=== PATIENT | female | born 1975 | race Caucasian/White ===

== ENCOUNTER 2020-05-07 07:05 | Emergency (ER) | payer OTHER, SELFPAY ==
[2020-05-07 07:10] VITALS: BP 109/82; PULSE 96; RESP 18; TEMP 36.8; O2SAT 98
[2020-05-07 07:23] VITALS: BP 119/75; PULSE 87
[2020-05-07 07:24] VITALS: BP 118/84; PULSE 105
[2020-05-07 07:24] LABS: Basophils Percent Auto 0.4 % (0.2-1.2); Hematocrit 42.6 % (37.0-47.0); Hemoglobin 14.7 g/dL (12.0-15.0); Immature Granulocyte Absolute 0.01 K/mm3 (0.00-0.031); Immature Granulocyte Percent A 0.4 % (0-0.5); Immature Platelet Fraction Pct 3.6 % (0.9-11.2); Lymphocytes Absolute Auto 0.81 K/mm3 (0.9-3.2); Lymphocytes Percent Auto 31.5 % (18.3-44.2); Mean Corpuscular HGB Conc 34.5 g/dl (32-36); Mean Corpuscular Hemoglobin 31.2 pg (26-34); Mean Corpuscular Volume 90.4 fl (80-100); Mean Platelet Volume 10.4 fl (7.4-10.4); Monocytes Absolute Auto 0.3 K/mm3 (0.1-0.6); Monocytes Percent Auto 9.7 % (2.6-8.5); Neutrophils Absolute Auto 1.5 K/mm3 (1.3-6.7); Platelet Count Result 141 k/mm3 (150-375); Red Blood Count 4.71 M/mm3 (4.2-5.4); Red Cell Distribution Width 11.6 % (11.5-14.5); White Blood Count 2.6 K/mm3 (4.5-10.0)
[2020-05-07 07:25] VITALS: BP 114/78; PULSE 120
[2020-05-07 07:34] LABS: Alanine Aminotransferase 38 U/L (4-35); Alkaline Phosphatase 71 U/L (38-126); Anion Gap 7 mmol/L (8-16); Aspartate Amino Transferase 52 U/L (14-36); Bilirubin,Total 0.3 mg/dL (0.2-1.3); Blood Urea Nitrogen 9 mg/dL (7-17); Calcium 7.7 mg/dL (8.4-10.2); Carbon Dioxide 26 mmol/L (22-30); Chloride 104 mmol/L (98-107); Estimated CRCL calculation 78 ml/min; Estimated Glomerular Filt Rate > 60; Glucose 134 mg/dL (65-105); Lipase 148 U/L (23-300); Potassium 3.6 mmol/L (3.4-5.0); Sodium 137 mmol/L (137-145)
[2020-05-07] MEDS: SODIUM CHLORIDE 0.9% IV 1,000 ML 999 ML IV CONT (07:39)
[2020-05-07 07:43] LABS: Add Urine Microscopic? YES; Appearance Urine Clear (Clear); Bacteria Urine Trace /hpf; Bilirubin Urine Negative (Negative); Blood Urine 1+ (Negative); Color Urine Yellow (Yellow); Glucose Urine UA Negative (Negative); Ketones Urine Trace mg/dL (Negative); Leukocyte Esterase Ur Negative LEU/UL (Negative); Mucus Urine Rare /lpf; Nitrate Urine Negative (Negative); Protein Urine 1+ mg/dL (Negative); Specific Grav Ur 1.024 (1.001-1.035); Squamous Epithelial Cell Urine Few /hpf (Few); Urobilinogen Urine Negative mg/dL (<2.0); WBC Urine 0-3 /hpf
--- NOTE | 2020-05-07 07:52 | ED.GENADULT ---
HPI - General Adult General Chief complaint: Nausea/Vomiting/Diarrhea Stated complaint: GUTI[facility]RRE[facility]ILLS X3D Time Seen by Provider: 05/07/20 07:21 Source: patient History of Present Illness HPI narrative: Patient is a 45 y/o female complaining of nausea, vomiting since 2-3 days ago. She states that she vomited only once. There is no alleviating or exacerbating factor. She also had a headache, mostly behind eyes 3 days ago, but the headache has resolved. She also has some dry mouth. She denies any abdominal pain. Related Data Home Medications Medication Instructions Recorded Confirmed No Home Medications 03/11/19 03/18/19 Allergies Allergy/AdvReac Type Severity Reaction Status Date / Time No Known Allergies Allergy Unverified 05/07/20 07:14 Review of Systems Constitutional: Constitutional: Denies chills, Denies fever(s), Reports headache(s) and Denies weakness Eyes: Eyes: Denies blurry vision ENT: Reports dry mouth, Reports headache(s) and Denies neck pain Cardiovascular: Cardiovascular: Denies chest pain and Denies dyspnea Respiratory: Respiratory: Denies cough and Denies dyspnea Gastrointestinal: Gastrointestinal: Denies abdominal pain, Reports diarrhea, Reports nausea and Reports vomiting Genitourinary: Genitourinary: Denies hematuria and Denies dysuria Musculoskeletal: Musculoskeletal: Denies back pain and Denies neck pain Neurologic: Reports headache(s) and Denies weakness PMFSH Past Medical History Medical History Incontinence Obesity Social History Social History Gender identity (if verbalized by the patient): Female Exam Const: General: no acute distress and well developed Orientation/consciousness: oriented to person, oriented to place, oriented to time and patient oriented x3 HENMT: Head: normocephalic Ears: external ears normal General nose exam: Normal external nose present Eyes: General: appearance normal, both eyes and all related structures Conjunctivae: conjunctivae normal Neck: Neck: normal visual inspection and full ROM Chest: Chest palpation & inspection: normal inspection of the chest and no tenderness Resp: Effort & Inspection: normal respiratory effort Auscultation: clear to auscultation bilaterally Cardio: Rate: regular rate Rhythm: regular rhythm GI: GI Palp: No abdominal tenderness and Yes Soft to palpation Skin: General skin exam: normal color and turgor normal Neuro: General: oriented to person, oriented to place, oriented to time and patient oriented x3 Cognition (Neuro): normal cognition Extrem: General: normal to inspection, full ROM and no pedal edema Psych: Appearance: grossly normal Mental Status: mental status grossly normal Affect: normal affect Course Reevaluation(s) Reevaluation #1: Rechecked. Informed patient about mildly elevated LFTs and instructed patient to follow up with PCP for further evaluation. Date: 05/07/20 Time: 07:50 Vital Signs Vital signs: Vital Signs Temperature 36.8 C 05/07/20 07:10 Pulse Rate 96 05/07/20 07:10 Respiratory Rate 18 05/07/20 07:10 Blood Pressure 109/82 05/07/20 07:10 Pulse Oximetry 98 05/07/20 07:10 Temperature 36.8 C 05/07/20 07:10 Pulse Rate 90 05/07/20 08:48 Respiratory Rate 18 05/07/20 08:48 Blood Pressure 107/69 05/07/20 08:48 Pulse Oximetry 97 05/07/20 08:48 Medical Decision Making Vital Signs Vital Signs: Vital Signs Temperature 36.8 C 05/07/20 07:10 Pulse Rate 96 05/07/20 07:10 Respiratory Rate 18 05/07/20 07:10 Blood Pressure 109/82 05/07/20 07:10 Pulse Oximetry 98 05/07/20 07:10 Temperature 36.8 C 05/07/20 07:10 Pulse Rate 90 05/07/20 08:48 Respiratory Rate 18 05/07/20 08:48 Blood Pressure 107/69 05/07/20 08:48 Pulse Oximetry 97 05/07/20 08:48 Lab Data Result diagrams: 05/07/20 07:15 05/07
[2020-05-07 08:48] VITALS: BP 107/69; PULSE 90; RESP 18; O2SAT 97
== END 2020-05-07 09:21 | disposition home or self-care (01) ==
PROVIDERS: Emergency Provider Emergency Medicine; PCP Internal Medicine
DX: K52.9 Noninfective gastroenteritis and colitis, unspecified (principal); R74.01 Elevation of levels of liver transaminase levels; E66.9 Obesity, unspecified; Z68.29 Body mass index [BMI] 29.0-29.9, adult
CPT/HCPCS: 36415; 80053; 81001; 81025; 83690; 85025; 85055; 96360; 99283; J7030

== ENCOUNTER 2020-08-29 13:40 | Emergency (ER) | payer OTHER, SELFPAY ==
--- NOTE | ~2020-08-29 | US_ITS ---
EXAMINATION: US pelvic complete DATE: 08/29/2020 15:51 INDICATION: Right lower quadrant abdominal pain. TECHNIQUE: Multiple transabdominal and transvaginal sonographic images of the pelvis were obtained. COMPARISON: CT abdomen and pelvis 08/29/2020 FINDINGS: TRANSABDOMINAL ULTRASOUND: The uterus measures 9.3 x 3.1 x 4.3 cm. There is no free fluid in the pelvis. TRANSVAGINAL ULTRASOUND: The endometrial complex measures 3 mm in thickness. There is an intrauterine device in expected posit ion. The right ovary measures 5.0 x 3.5 x 2.4 cm. There is a 3.0 cm cyst in right ovary, likely a fol licular cyst. The left ovary measures 2.3 x 0.9 x 1.6 cm. There is normal vascular flow in the ovarie s. IMPRESSION: 1. 3.0 cm cyst in right ovary, likely a follicular cyst. Reviewed, dictated and finalized at location A.
--- NOTE | ~2020-08-29 | CT_ITS ---
EXAMINATION: CT abdomen pelvis w con INDICATION: Nausea, right lower quadrant pain TECHNIQUE: Computed tomographic images of the abdomen and pelvis were obtained after the administrati on of 100 cc of Omnipaque 350 intravenous contrast. The dose-length product (DLP) was 1072.66 mGy-cm. Automated exposure control and iterative reconstruction technique were employed. COMPARISON: 09/29/2018 FINDINGS: The lung bases are clear. The heart size is normal. Punctate calcifications in an otherwise normal spleen likely represent healed granulomatous disease. The liver, pancreas, gallbladder, and a drenal glands are normal. The kidneys are unremarkable. The appendix is normal. An IUD is present in expected position. Tubal occlusion devices are also noted. There is a 5 cm cyst of the right adnexa w ith increase in size since the comparison examination. No pathologically enlarged abdominal or pelvic lymph nodes are identified. There is no free intraperitoneal gas or evidence of bowel obstruction. IMPRESSION: 1. No CT correlate for the patient's symptoms. Reviewed, dictated and finalized at location A.
[2020-08-29 13:44] VITALS: BP 145/92; PULSE 81; RESP 20; TEMP 36.5; O2SAT 98
--- NOTE | 2020-08-29 13:55 | ED.GENADULT ---
HPI - General Adult General Chief complaint: Abdominal Pain Stated complaint: abd pain Time Seen by Provider: 08/29/20 13:43 Source: RN notes reviewed History of Present Illness HPI narrative: Patient presents to emergency department from home for right side abdominal pain. Patient states symptoms again approximately 12:30 AM today. The pain is located in the right upper lateral abdomen does not radiate described as sharp and stabbing associated with nausea. Patient denies any fevers or chills chest pain shortness of breath. Notes one episode of diarrhea states she took Tylenol at home with minimal relief Related Data Allergies Allergy/AdvReac Type Severity Reaction Status Date / Time No Known Allergies Allergy Verified 08/29/20 13:50 Review of Systems Review of Systems: Narrative: Gen.: Denies fevers or chills ENT: Denies congestion Respiratory: Denies shortness of breath or cough CV: Denies chest pain or palpitations GI: See HPI denies burning, urgency, frequency or hematuria Musculoskeletal: Denies back pain or muscle pain Neuro: Denies numbness, tingling, weakness or focal weakness Skin: Denies rash Except as documented, all other systems reviewed and negative [facility] Past Medical History Medical History Incontinence Obesity Social History Social History (Updated 08/29/20 @ 13:55 by Luke Duarte DO) Smoking status: Never smoker Gender identity (if verbalized by the patient): Female Exam Narrative: Exam Narrative: APPEARANCE: No acute distress, nontoxic, resting in bed HEENT: Normocephalic, atraumatic, OMM RESPIRATORY: No respiratory distress, clear to auscultation bilaterally with no rhonchi wheezing or rales CARDIOVASCULAR: RRR s murmur ABDOMINAL: Soft nondistended tender palpation right upper quadrant right lower quadrant no tenderness left upper quadrant left lower quadrant no rebound or guarding : Normal external exam moderate amount of brownish discharge cervix is closed, right adnexal tenderness no left adnexal tenderness, positive cervical motion tenderness MUSCULOSKELETAl: Moves all extremities. No clubbing, cyanosis or edema. NEURO: Awake and alert. Following commands, speech normal, no focal deficits SKIN:: Warm, dry. Normal Color PSYCHIATRIC: Normal affect/mood Course Course Emergency Course: Discussed with Dr. Liao presentation work-up agrees plan for discharge agrees with plan for treatment for PID Patient states that they are feeling much better at this time. States abdominal pain has improved. Repeat abdominal exam shows the patient's abdomen to be soft with no surgical abdomen present discussed with patient results of workup and diagnosis. Discussed need for follow-up with primary care physician, reasons to return to the emergency department in proper use of medication. Patient understands and agrees to current treatment plan Vital Signs Vital signs: Vital Signs Temperature 97.7 F 08/29/20 13:44 Pulse Rate 81 08/29/20 13:44 Respiratory Rate 20 08/29/20 13:44 Blood Pressure 145/92 H 08/29/20 13:44 Pulse Oximetry 98 08/29/20 13:44 Temperature 97.7 F 08/29/20 13:44 Pulse Rate 83 08/29/20 16:53 Respiratory Rate 16 08/29/20 16:53 Blood Pressure 131/77 08/29/20 16:53 Pulse Oximetry 100 08/29/20 16:53 Medical Decision Making MDM Narrative Medical decision making narrative: Patient's abdomen is soft without significant pain or signs of surgical abdomen on serial exams. Lab and x-ray evaluations are reviewed and patient is felt to be a reasonable candidate for outpatient management. Patient was instructed as to limitations of x-ray and laboratory evaluation and encouraged to return to ED or primary physician for repeat exam in 12 hours if continued or worsening pain Vital Signs Vital Signs: Vital Signs Temperature 97.7 F 08/29/20 13:44 Pulse Rate 81 08/29/20 13:44 Respiratory Rate 20
[2020-08-29] MEDS: ONDANSETRON INJ 4 MG/2 ML VIAL IV PUSH (14:06)
[2020-08-29] MEDS: SODIUM CHLORIDE 0.9% IV 1,000 ML 999 ML IV CONT (14:06)
[2020-08-29] MEDS: KETOROLAC 30 MG/ML VIAL (*BKC) IV PUSH (14:08)
[2020-08-29 14:32] LABS: Basophils Percent Auto 0.3 % (0.2-1.2); Hematocrit 41.6 % (37.0-47.0); Hemoglobin 14.7 g/dL (12.0-15.0); Immature Granulocyte Absolute 0.04 K/mm3 (0.00-0.031); Immature Granulocyte Percent A 0.3 % (0-0.5); Lymphocytes Absolute Auto 0.73 K/mm3 (0.9-3.2); Lymphocytes Percent Auto 5.2 % (18.3-44.2); Mean Corpuscular HGB Conc 35.3 g/dl (32-36); Mean Corpuscular Hemoglobin 31.1 pg (26-34); Mean Corpuscular Volume 87.9 fl (80-100); Mean Platelet Volume 10.4 fl (7.4-10.4); Monocytes Absolute Auto 0.2 K/mm3 (0.1-0.6); Monocytes Percent Auto 1.3 % (2.6-8.5); Neutrophils Absolute Auto 13.1 K/mm3 (1.3-6.7); Neutrophils Percent Auto 92.9 % (45.5-73.1); Platelet Count Result 291 k/mm3 (150-375); Red Blood Count 4.73 M/mm3 (4.2-5.4); Red Cell Distribution Width 11.5 % (11.5-14.5); White Blood Count 14.1 K/mm3 (4.5-10.0)
[2020-08-29 14:38] LABS: Add Urine Microscopic? YES; Appearance Urine Cloudy (Clear); Bilirubin Urine Negative (Negative); Blood Urine 2+ (Negative); Color Urine Yellow (Yellow); Glucose Urine UA Negative (Negative); Ketones Urine 2+ mg/dL (Negative); Leukocyte Esterase Ur Negative LEU/UL (Negative); Mucus Urine Moderate /lpf; Nitrate Urine Negative (Negative); Protein Urine 2+ mg/dL (Negative); Squamous Epithelial Cell Urine Few /hpf (Few); Urobilinogen Urine Negative mg/dL (<2.0); WBC Urine 0-3 /hpf
[2020-08-29 14:40] LABS: Alanine Aminotransferase 14 U/L (4-35); Albumin Level 4.7 g/dL (3.5-5.1); Alkaline Phosphatase 61 U/L (38-126); Anion Gap 10 mmol/L (8-16); Aspartate Amino Transferase 33 U/L (14-36); Bilirubin,Total 0.5 mg/dL (0.2-1.3); Blood Urea Nitrogen 11 mg/dL (7-17); Calcium 9.1 mg/dL (8.4-10.2); Carbon Dioxide 22 mmol/L (22-30); Chloride 103 mmol/L (98-107); Estimated CRCL calculation 110 ml/min; Estimated Glomerular Filt Rate > 60; Glucose 114 mg/dL (65-105); Lipase 76 U/L (23-300); Potassium 3.9 mmol/L (3.4-5.0); Sodium 135 mmol/L (137-145)
[2020-08-29 14:43] LABS: Specific Grav Ur 1.032 (1.001-1.035)
[2020-08-29 15:13] VITALS: BP 132/74; PULSE 79; RESP 18; O2SAT 100
[2020-08-29] MEDS: MORPHINE SULFATE (*CRX) 4 MG/ML INJ IV PUSH (15:39)
--- NOTE | 2020-08-29 15:41 | PC.NURSE ---
Pt to US via wheelchair at this time.
[2020-08-29 16:53] VITALS: BP 131/77; PULSE 83; RESP 16; O2SAT 100
[2020-08-29] MEDS: DOXYCYCLINE HYCLATE 100 MG TABLET PO (17:42)
[2020-08-29] MEDS: MORPHINE SULFATE (*CRX) 2 MG/ML INJ IV PUSH (17:45)
[2020-08-29] MEDS: cefTRIAXone 0.5 GM in DEXTROSE 5% IN WATER 50 ML IVPB (17:59)
[2020-08-29 18:24] VITALS: BP 120/81; PULSE 72; RESP 16; O2SAT 100
== END 2020-08-29 18:24 | disposition home or self-care (01) ==
PROVIDERS: Emergency Provider Emergency Medicine; PCP Internal Medicine
DX: N73.9 Female pelvic inflammatory disease, unspecified (principal); N83.201 Unspecified ovarian cyst, right side; E66.9 Obesity, unspecified; Z68.32 Body mass index [BMI] 32.0-32.9, adult
CPT/HCPCS: 36415; 74177; 76856; 80053; 81001; 81025; 83690; 85025; 87070; 87491; 87591; 87808; 96361; 96365; 96375; 96376; 99284; A9270; J0696; J1885; J2270; J2405; J7030; Q9967

== ENCOUNTER 2020-08-31 17:36 | Observation (INO) | payer OTHER, SELFPAY ==
--- NOTE | ~2020-08-31 | US_ITS ---
EXAMINATION: US pelvic complete DATE: 08/31/2020 23:49 INDICATION: Right lower quadrant abdominal pain. TECHNIQUE: Multiple transabdominal sonographic images of the pelvis were obtained. COMPARISON: CT abdomen and pelvis 08/29/2020, pelvis ultrasound 08/29/2020 FINDINGS: The uterus measures 9.7 x 3.0 x 5.2 cm. There is no free fluid in the pelvis. The endometrial complex measures 5 mm in thickness. The right ovary measures 6.3 x 4.7 x 3.9 cm. There is a 3.1 cm cyst in r ight ovary with peripheral low level echoes, consistent with a hemorrhagic cyst. The left ovary measu res 1.9 x 1.8 x 1.3 cm. There is normal vascular flow in the ovaries. IMPRESSION: 1. 3.1 cm hemorrhagic cyst in right ovary. Reviewed, dictated and finalized at location A.
[2020-08-31 18:36] VITALS: BP 145/98; PULSE 83; RESP 18; TEMP 36.7; O2SAT 98
[2020-08-31 18:57] LABS: Basophils Absolute Auto 0.1 K/mm3 (0.0-0.1); Basophils Percent Auto 0.5 % (0.2-1.2); Eosinophils Absolute Auto 0.2 K/mm3 (0-0.3); Eosinophils Percent Auto 1.7 % (0-4.4); Hematocrit 39.2 % (37.0-47.0); Hemoglobin 13.4 g/dL (12.0-15.0); Immature Granulocyte Absolute 0.03 K/mm3 (0.00-0.031); Immature Granulocyte Percent A 0.3 % (0-0.5); Lymphocytes Absolute Auto 1.92 K/mm3 (0.9-3.2); Lymphocytes Percent Auto 19.3 % (18.3-44.2); Mean Corpuscular HGB Conc 34.2 g/dl (32-36); Mean Corpuscular Hemoglobin 31.3 pg (26-34); Mean Corpuscular Volume 91.6 fl (80-100); Mean Platelet Volume 9.8 fl (7.4-10.4); Monocytes Absolute Auto 0.7 K/mm3 (0.1-0.6); Monocytes Percent Auto 6.5 % (2.6-8.5); Neutrophils Absolute Auto 7.1 K/mm3 (1.3-6.7); Neutrophils Percent Auto 71.7 % (45.5-73.1); Platelet Count Result 219 k/mm3 (150-375); Red Blood Count 4.28 M/mm3 (4.2-5.4); Red Cell Distribution Width 11.8 % (11.5-14.5)
[2020-08-31 19:10] LABS: Alanine Aminotransferase 13 U/L (4-35); Albumin Level 4.2 g/dL (3.5-5.1); Alkaline Phosphatase 57 U/L (38-126); Anion Gap 2 mmol/L (8-16); Aspartate Amino Transferase 30 U/L (14-36); Bilirubin,Total 0.6 mg/dL (0.2-1.3); Blood Urea Nitrogen 8 mg/dL (7-17); Calcium 8.9 mg/dL (8.4-10.2); Carbon Dioxide 30 mmol/L (22-30); Chloride 107 mmol/L (98-107); Estimated CRCL calculation 95 ml/min; Estimated Glomerular Filt Rate > 60; Glucose 94 mg/dL (65-105); Lipase 41 U/L (23-300); Potassium 3.9 mmol/L (3.4-5.0); Sodium 139 mmol/L (137-145)
[2020-08-31 20:58] VITALS: BP 144/99; PULSE 80; RESP 16; O2SAT 100
[2020-08-31 21:09] LABS: Add Urine Microscopic? YES; Appearance Urine Cloudy (Clear); Bacteria Urine 2+ /hpf; Bilirubin Urine Negative (Negative); Blood Urine 2+ (Negative); Color Urine Yellow (Yellow); Glucose Urine UA Negative (Negative); Ketones Urine 1+ mg/dL (Negative); Leukocyte Esterase Ur Trace LEU/UL (Negative); Mucus Urine Moderate /lpf; Nitrate Urine Negative (Negative); Protein Urine 1+ mg/dL (Negative); RBC Urine 21-50 /hpf (0-2); Specific Grav Ur 1.025 (1.001-1.035); Squamous Epithelial Cell Urine Many /hpf (Few); Urobilinogen Urine Negative mg/dL (<2.0)
--- NOTE | 2020-08-31 21:26 | ED.ABDPAIN ---
HPI - Abdominal Pain General Chief Complaint: Abdominal Pain Stated Complaint: Abd Pain Time Seen by Provider: 08/31/20 20:49 Source: patient and RN notes reviewed Mode of arrival: ambulatory Limitations: no limitations History of Present Illness HPI narrative: Patient is 45 years old white female presents with right lower quadrant pain started 4 days ago, patient came to our emergency room 3 days ago, work-up showed 3 cm right ovarian cyst, was seen by [employer]ESS [employer]T MAKER today and was told if the pain gets worse go to the emergency room. At home patient believes that her pain got worse. Patient denies any fever, chills, nausea, vomiting, referred pain, urinary symptoms, vaginal bleeding or discharge. No history of abdominal surgery. Patient believes that the pain been getting worse over the last 4 days. Related Data Allergies Allergy/AdvReac Type Severity Reaction Status Date / Time No Known Allergies Allergy Verified 08/29/20 13:50 Review of Systems Review of Systems: Narrative: CONSTITUTIONAL: Denies fever, chills, or sweats. EYES: Denies visual changes, redness, or discharge. ENT: Denies rhinorrhea, congestion, sore throat, or otalgia. CARDIOVASCULAR: Denies chest pain, palpitations, or edema. RESPIRATORY: Denies cough or dyspnea. GASTROINTESTINAL: Denies abdominal pain, nausea, vomiting, or diarrhea. GENITOURINARY: Denies dysuria or hematuria. SKIN: Denies rash or itching. MUSCULOSKELETAL: Denies back pain, joint pain, or myalgia. NEUROLOGIC: Denies headache, numbness, or weakness. PSYCHIATRIC: Denies anxiety or depression. PMFSH Past Medical History Medical History Incontinence Obesity Social History Social History Smoking status: Never smoker Gender identity (if verbalized by the patient): Female Exam Narrative: Exam Narrative: General appearance: Well-developed, well-nourished Skin: Normal color Head: Normocephalic, nontraumatic Eyes: Clear conjunctiva ENT: Oropharynx normal, ears normal, nose normal Neck: Supple, nontender Chest and respiratory: Airway patent, no respiratory distress, no accessory muscle use Heart: Regular rate/rhythm Abdomen: Soft, mild to moderate tenderness right lower quadrant, no guarding or rebound, no organomegaly, quiet bowel sounds Vascular: Normal peripheral pulses, normal capillary refill. Musculoskeletal: Normal range of motion, nontender back Neurologic: Alert and oriented ?3, [employer] is normal as tested, no gross motor deficit Course Course Emergency Course: Stable Consultations Consultation #1: DR CARTER Admit to [employer] Date: 09/01/20 Time: 00:16 Vital Signs Vital signs: Vital Signs Temperature 36.7 C 08/31/20 18:36 Pulse Rate 83 08/31/20 18:36 Respiratory Rate 18 08/31/20 18:36 Blood Pressure 145/98 H 08/31/20 18:36 Pulse Oximetry 98 08/31/20 18:36 Temperature 36.7 C 08/31/20 18:36 Pulse Rate 78 08/31/20 22:53 Respiratory Rate 18 08/31/20 22:53 Blood Pressure 138/92 H 08/31/20 22:53 Pulse Oximetry 100 08/31/20 22:53 MDM - Abdominal Pain MDM Narrative Medical decision making narrative: Patient had negative CT scan of the abdomen and pelvis 3 days ago, ultrasound at that time showed 3 cm right ovarian cyst, Ultrasound pelvis ordered. Further plan to follow Differential Diagnosis Differential diagnosis: Likely constipation and other (Right ovarian cyst, ovarian torsion, ruptured ovarian cyst) Lab Data Result diagrams: 08/31/20 18:50 08/31/20 18:50 Labs: Lab Results 08/31/20 08/31/20 08/31/20 Range/Units 18:50 18:50 20:52 W
[2020-08-31] MEDS: SODIUM CHLORIDE 0.9% IV 1,000 ML 999 ML IV CONT (21:39)
[2020-08-31] MEDS: ONDANSETRON INJ 4 MG/2 ML VIAL IV PUSH (22:47)
[2020-08-31] MEDS: MORPHINE SULFATE (*CRX) 4 MG/ML INJ IV PUSH (22:49)
[2020-08-31 22:53] VITALS: BP 138/92; PULSE 78; RESP 18; O2SAT 100
[2020-09-01] VITALS (9 sets, daily range): BP systolic 112–124; BP diastolic 65–85; PULSE 72–88; RESP 14–16; TEMP 36.4–37; O2SAT 97–100; BMI 31.9
--- NOTE | 2020-09-01 02:22 | OBPPTRN ---
Patient transferred to post room #279 via wheelchair. Oriented to unit, room, information board, rooming in, admission packet and security measures. Patient verbalizes understanding.
[2020-09-01] MEDS: ONDANSETRON INJ 4 MG/2 ML VIAL IV PUSH (02:44)
[2020-09-01] MEDS: HYDROmorphone HCL INJ (*CRX) 1 MG/ML SYR 0.5 MG IV PUSH ×4 (02:51→10:51)
--- NOTE | 2020-09-01 09:04 | PM.IMHP ---
H&P: HPI History of Present Illness Date/Time: 09/01/20 09:04 this patient is a 45-year-old multiparous female who presents for severe pelvic pain. She is known to have a right ovarian cyst. Appears to be hemorrhagic cyst. Patient is in severe pain. She cannot stand. She has a severe sharp pain 10/10 in the right side of her pelvis. Nothing is pale a tip in movement is provocative. It is worsening. It does not radiate. We have agreed to perform laparoscopic ovarian cystectomy possible right salpingo-oophorectomy. Patient understands the risk. She understands that injuries may occur that result in hospitalization, more surgery, and severe illness. She understands risk of hemorrhage and infection and laparotomy. Chief Complaint: Pelvic pain Review of Systems Constitutional: Constitutional: Reports no additional constitutional complaints, Denies fatigue, Denies headache(s), Denies lethargy and Denies weakness Eyes: Eyes: Reports no additional eye complaints, Denies blurry vision and Denies photophobia ENT: Reports as per HPI, Denies headache(s) and Denies neck pain Cardiovascular: Cardiovascular: Denies chest pain, Denies diaphoresis, Denies leg edema, Denies palpitations and Denies dyspnea Respiratory: Respiratory: Denies hemoptysis, Denies dyspnea and Denies wheezing Gastrointestinal: Gastrointestinal: Denies abdominal pain, Denies melena, Denies bloating, Denies hematochezia, Denies nausea and Denies vomiting Genitourinary: Genitourinary: Reports no additional female genitourinary complaints Musculoskeletal: Musculoskeletal: Denies joint swelling, Denies neck pain, Denies numbness and Denies stiffness Neurologic: Denies Abnormal speech present, Denies confusion, Denies headache(s), Denies numbness and Denies weakness Psychiatric: Psychiatric: Denies anxiety, Denies confusion, Denies depression, Denies homicidal ideation and Denies suicidal ideation Endocrine: Endocrine: Denies fatigue and Denies palpitations Allergic/Immunologic: Allergic/Immunologic: Denies wheezing PMFSH Past Medical History Medical History Incontinence Obesity Social History Social History Smoking status: Never smoker Gender identity (if verbalized by the patient): Female Meds Home Medications and Allergies Home Medications Medication Instructions Recorded Confirmed Type doxycycline monohydrate 100 mg PO BID 14 Days #28 cap 08/29/20 Rx hydrocodone-acetaminophen 1 tablet PO Q4H PRN #4 tablet 08/29/20 Rx ibuprofen [IBU] 600 mg PO Q6H PRN #20 tablet 08/29/20 Rx ondansetron 4 mg PO Q6H PRN #10 tablet 08/29/20 Rx Allergies Allergy/AdvReac Type Severity Reaction Status Date / Time No Known Allergies Allergy Verified 08/29/20 13:50 Vital Signs Vital Signs - 24 hr 08/31/20 18:36 08/31/20 20:58 08/31/20 22:53 Temperature 98.0 F Pulse Rate 83 80 78 Respiratory Rate 18 16 18 Blood Pressure 145/98 H 144/99 H 138/92 H Pulse Oximetry 98 100 100 09/01/20 02:37 Temperature 98.5 F Pulse Rate 81 Respiratory Rate 15 Blood Pressure 124/83 Pulse Oximetry Exam Const: General: healthy appearing, comfortable and no acute distress; No confusion Orientation/consciousness: No confusion Eyes: Direct Ophthalmoscopy: No photophobia Resp: Auscultation: clear to auscultation bilaterally, no rales, no rhonchi and no wheezes Cardio: Rate: regular rate Heart sounds: no click, no murmurs and no rubs GI: Inspection: non-distended GI Palp: No abdominal tenderness Auscultation: normal bowel sounds : External Female Exam: normal external appearance Speculum Exam - Vagina: normal appearance of the vagina Speculum Exam - Cervix: normal appearance of the cervix Bimanual exam- vagina & uterus: Uterine tenderness Bimanual Exam- Adnexa, other: tender Neuro: General: No confusion Speech: No Abnormal speech present Ext
--- NOTE | 2020-09-01 09:05 | PC.NURSE ---
Patient taken to surgery per wheelchair by the household refrigerator mechanic. Report given to PACU nurse.
--- NOTE | 2020-09-01 09:10 | WPDHPUPDATE1 ---
History and Physical Update Update Date/Time: 09/01/20 09:10 History and Physical has been reviewed, including an updated exam of the patient. There are NO changes in the patient's condition. Risks, benefits, and alternatives have been discussed and questions answered. Patient agrees to proceed with procedure.
--- NOTE | 2020-09-01 09:11 | WPDANESEPPF ---
Anes - Initial Pre Proc Eval Procedure: Operation Date: 09/01/20 09:45 Proposed Procedures p Laparoscopic Right Ovarian Cystectomy - Telma Liao MD Date/Time: 09/01/20 09:11 Surgeon: Telma Liao MD Pre Op Diagnosis: Right ovarian cyst Patient Data Age: 45 Gender: F Height: 1.65 m Weight: 87.1 kg Last Vital Signs Temp 36.9 C 09/01/20 02:37 Pulse 81 09/01/20 02:37 Resp 15 09/01/20 02:37 BP 124/83 09/01/20 02:37 Pulse Ox 100 08/31/20 22:53 Allergies Allergy/AdvReac Type Severity Reaction Status Date / Time No Known Allergies Allergy Verified 08/29/20 13:50 Home Medications Medication Instructions Recorded Confirmed Type doxycycline monohydrate 100 mg PO BID 14 Days #28 cap 08/29/20 Rx hydrocodone-acetaminophen 1 tablet PO Q4H PRN #4 tablet 08/29/20 Rx ibuprofen [IBU] 600 mg PO Q6H PRN #20 tablet 08/29/20 Rx ondansetron 4 mg PO Q6H PRN #10 tablet 08/29/20 Rx Laboratory Tests 08/31/20 08/31/20 08/31/20 18:50 18:50 20:52 WBC 10.0 K/mm3 K/mm3 (4.5-10.0) RBC 4.28 M/mm3 M/mm3 (4.2-5.4) Hgb 13.4 g/dL g/dL (12.0-15.0) Hct 39.2 % % (37.0-47.0) MCV 91.6 fl fl (80-100) MCH 31.3 pg pg (26-34) MCHC 34.2 g/dl g/dl (32-36) RDW 11.8 % % (11.5-14.5) Plt Count 219 k/mm3 k/mm3 (150-375) MPV 9.8 fl fl (7.4-10.4) Immature Gran % (Auto) 0.3 % % (0-0.5) Neut % (Auto) 71.7 % % (45.5-73.1) Lymph % (Auto) 19.3 % % (18.3-44.2) [place] % (Auto) 6.5 % % (2.6-8.5) Eos % (Auto) 1.7 % % (0-4.4) Baso % (Auto) 0.5 % % (0.2-1.2) Lymph # (Auto) 1.92 K/mm3 K/mm3 (0.9-3.2) [place] # (Auto) 0.7 K/mm3 H K/mm3 (0.1-0.6) Eos # (Auto) 0.2 K/mm3 K/mm3 (0-0.3) Baso # (Auto) 0.1 K/mm3 K/mm3 (0.0-0.1) Abs Immat Gran (auto) 0.03 K/mm3 K/mm3 (0.00-0.031) Absolute Neuts (auto) 7.1 K/mm3 H K/mm3 (1.3-6.7) Absolute Nucleated RBC 0.0 K/mm3 K/mm3 (0.0-0.012) Nucleated RBC % 0.0 % % (0.0-0.2) Sodium 139 mmol/L mmol/L (137-145) Potassium 3.9 mmol/L mmol/L (3.4-5.0) Chloride 107 mmol/L mmol/L (98-107) Carbon Dioxide 30 mmol/L mmol/L (22-30) Anion Gap 2 mmol/L L mmol/L (8-16) BUN 8 mg/dL mg/dL (7-17) Creatinine 0.70 mg/dL mg/dL (0.7-1.0) Estim Creat Clear Calc 95 ml/min ml/min Estimated GFR > 60 (59 - ) Glucose 94 mg/dL mg/dL (65-105) Calcium 8.9 mg/dL mg/dL (8.4-10.2) Total Bilirubin 0.6 mg/dL mg/dL (0.2-1.3) AST 30 U/L U/L (14-36) ALT 13 U/L U/L (4-35) Alkaline Phosphatase 57 U/L U/L (38-126) Total Protein 8.0 g/dL g/dL (6.3-8.2) Albumin 4.2 g/dL g/dL (3.5-5.1) Lipase 41 U/L U/L (23-300) Urine Color Yellow (Yellow) Urine Appearance Cloudy H (Clear) Urine pH 5.0 (5.0-9.0) Ur Specific [place] 1.025 (1.001-1.035) Urine Protein 1+ mg/dL H mg/dL (Negative) Urine Glucose (UA) Negative mg/dL mg/dL (Negative) Urine Ketones 1+ mg/dL H mg/dL (Negative) Ur Blood (Man) 2+ H (Negative) Urine Nitrate Negative (Negative) Urine Bilirubin Negative (Negative) Urine Urobilinogen Negative mg/dL mg/dL (<2.0) Leukocyte Esterase Rfl Trace EMILY/UL H EMILY/UL (Negative) Urine RBC 21-50 /hpf H /hpf (0-2) Urine WBC 10-15 /hpf H /hpf Ur Squamous Epith Cells Many /hpf H /hpf (Few) Urine Bacteria 2+ /hpf H /hpf Urine Mucus Moderate /lpf H /lpf Patient hx anesthesia problems: none Family hx anesthesia problems: none PMFSH Past Medical History Medical History
[2020-09-01] MEDS: LACTATED RINGERS 1,000 ML 30 ML IV CONT (10:13)
--- NOTE | 2020-09-01 10:18 | PM.PROC ---
Procedure Note - Detailed Date of procedure: 09/01/20 Pre-op diagnosis: Right ovarian cyst Severe pelvic pain Post-op diagnosis: same (Right fallopian tube torsion, paratubal cyst, right fallopian tube hematoma) Procedure performed: Laparoscopic right salpingectomy. Description of procedure: The patient was taken the operating room. She was prepped and draped in the dorsal lithotomy position after induction of general anesthesia. A 5 mm left upper quadrant incision was made. A 5 mm trocar was inserted through that incision into the intra-abdominal cavity under direct visualization the scope. In a likewise fashion a left mm trocars inserted in the left lower quadrant through an 11 mm incision. This was done under direct visualization the scope as was a 5 mm infraumbilical trocar which was inserted through a 5 mm infraumbilical incision. The right fallopian tube was removed. The area of the torsion was cauterized. It was transected with scissors. The cut surface that remained was cauterized thoroughly to make sure was hemostatic. The engorged fallopian tube and paratubal cyst were placed in an endobag and taken out the left lower quadrant trocar site. The pelvis was irrigated. The pneumoperitoneum was reduced. The trocars removed. Sponge lap and needle counts were correct x2. She was taken recovery room stable condition. Anesthesia: GETA Surgeon: Telma Liao MD Estimated blood loss (mL): 25 Drains: No Packing: No Pathology: yes Complications: No immediate complications Condition: stable Disposition: floor Findings: Large engorged right fallopian tube was twisted with an apparent paratubal cyst that was large large hematoma. Left fallopian tube and ovary were normal. Right ovary is normal. Uterus appears normal
--- NOTE | 2020-09-01 11:30 | PC.NURSE ---
Patient back from surgery, transferred to the bed. Call light within reach, significant other at bedside
[2020-09-01] MEDS: KETOROLAC 30 MG/ML VIAL (*BKC) IV PUSH (11:48)
[2020-09-01] MEDS: HYDROcodone/acetaminophen (*CRX) 5-325 MG TABLET 1 TAB PO (13:51)
--- NOTE | 2020-09-23 19:59 | PM.DS ---
DS: Admitting Diagnosis Admitting Diagnosis Admitting Diagnosis: Pelvic pain, ovarian cyst DS: Discharge Diagnosis Discharge Diagnosis (1) Cyst of right ovary: Code(s): N83.201 - Unspecified ovarian cyst, right side Status: Acute (2) Pelvic pain: Code(s): R10.2 - Pelvic and perineal pain Status: Acute DS: Summary Hospital Course Reason for hospitalization: pelvic pain, ovarian cyst Hospital Course: this patient is a 45-year-old who presented emergency department with severe pain. She was evaluated and found to have an ovarian cyst. She was admitted for observation. Surgical remedial in the ovarian cyst was performed. She had a laparoscopic ovarian cystectomy. She started her recovering normally and was discharged home shortly after the surgery. Status at Discharge Functional status at discharge: independent ambulation Time Spent with Patient Time attestation: Total time spent providing and/or coordinating discharge services: Time spent: Less than 30 minutes DS: Data Data Completed and Pending Completed studies during hospitalization: Pending at discharge 09/01/20 09:57 Surgical [PTH] Routine Discharge Plan Discharge Consulting providers: Taz Benavidez V. Discharging Clinician: Telma Liao Patient Disposition: Home, Self-Care Activity: pelvic rest Diet: regular Patient Instructions: Salpingectomy (DC) Stand Alone Forms: General Discharge Information Follow-up/Referrals: Telma Liao MD [Physician] - Discharge Medications: New hydrocodone-acetaminophen 5-325 mg tablet 1 - 2 tablet PO Q4H PRN (Reason: pain) Qty: 14 RF: 0 Continued doxycycline monohydrate 100 mg capsule 100 mg PO BID 14 Days Qty: 28 RF: 0 hydrocodone-acetaminophen 5-325 mg tablet 1 tablet PO Q4H PRN (Reason: pain) Qty: 4 RF: 0 ibuprofen [IBU] 600 mg tablet 600 mg PO Q6H PRN (Reason: pain) Qty: 20 RF: 0 ondansetron 4 mg tablet,disintegrating 4 mg PO Q6H PRN (Reason: nausea and vomiting) Qty: 10 RF: 0 Date of admission: 09/01/20 00:26 Primary Care Provider: Joel,Tristin Fox Admitting Provider: Telma Liao Attending physician on admission: Telma Liao Condition: Stable
== END 2020-09-01 15:39 | disposition home or self-care (01) ==
LOC: ANHED 09-01 00:36 → ANHOB2 09-01 01:16
PROVIDERS: Admitting Provider Obstetrics & Gynecology; Emergency Provider Emergency Medicine; PCP Internal Medicine; Visit Provider Obstetrics & Gynecology
PROC: (CPT 49320; principal; 2020-09-01 09:45)
DX: N83.511 Torsion of right ovary and ovarian pedicle (principal); N83.201 Unspecified ovarian cyst, right side; R10.2 Pelvic and perineal pain
CPT/HCPCS: 58661; 36415; 76856; 80053; 81001; 81025; 83690; 85025; 87086; 87088; 88302; 88305; 96361; 96374; 96375; 96376; 99285; A9270; G0378; J0330; J1170; J1885; J2250; J2270; J2405; J2704; J3010; J7030; J7120; Q9968